=== PATIENT | male | born 1980 | race Caucasian/White ===

== ENCOUNTER 2024-05-31 19:57 | Emergency (ER) | payer MEDICAID ==
[~2024-05-31] VITALS: Ht 177.8 cm; Wt 79.0 kg
[2024-05-31 20:03] VITALS: BP 136/88; PULSE 86; RESP 18; TEMP 99.1; O2SAT 98
== END 2024-05-31 21:01 | disposition left against medical advice (07) ==
LOC: ER 19:57
DX: R51.9 Headache, unspecified (principal); Z53.21 Procedure and treatment not carried out due to patient leaving prior to being seen by health care provider